=== PATIENT | male | born 1930 | race Caucasian/White ===

== ENCOUNTER 2021-06-28 19:59 | Emergency (ER) | payer MEDICARE, OTHER ==
[2021-06-28] MEDS: IPRATROPIUM/ALBUTEROL SULFATE 3 ML SOLUTION IH SCH ×2 (20:30→20:45)
[2021-07-01 13:30] VITALS: BP 139/78
== END 2021-07-01 13:32 ==
LOC: EDH 19:59
DX: U07.1 COVID-19 (principal); I10 Essential (primary) hypertension; F03.90 Unspecified dementia, unspecified severity, without behavioral disturbance, psychotic disturbance, mood disturbance, and anxiety
CPT/HCPCS: 71045; 87635; 94640 ×2; 99285; C9803